=== PATIENT | female | born 1945 ===

== ENCOUNTER → 2019-04-28 | Emergency (ER) | payer OTHER ==
[~2019-04-28] VITALS: Ht 154.9 cm; Wt 93.9 kg
[~2019-04-28] MED LIST: IBUPROFEN800 MG PO; LAMICTAL100 MG; ORPH100T PO; SEPTRA DS TABLE1 TAB PO
== END | disposition home or self-care (01) ==
LOC: ER 19:02
DX: S01.111A Laceration without foreign body of right eyelid and periocular area, initial encounter (principal); S50.01XA Contusion of right elbow, initial encounter; W18.09XA Striking against other object with subsequent fall, initial encounter; Y93.89 Activity, other specified; Y92.488 Other paved roadways as the place of occurrence of the external cause; Y99.8 Other external cause status

== ENCOUNTER 2019-05-08 12:37 | Emergency (ER) | payer OTHER ==
[~2019-05-08] VITALS: Ht 154.9 cm; Wt 93.9 kg
== END 2019-05-08 17:27 | disposition home or self-care (01) ==
LOC: ER 12:37
DX: J06.9 Acute upper respiratory infection, unspecified (principal); Z48.02 Encounter for removal of sutures

== ENCOUNTER → 2019-05-12 10:28 | Outpatient (CLI) | payer OTHER | END | disposition home or self-care (01) | LOC: LAB 10:28 | DX: J11.1 Influenza due to unidentified influenza virus with other respiratory manifestations (principal); E78.49 Other hyperlipidemia; D64.89 Other specified anemias; N39.0 Urinary tract infection, site not specified; Z12.11 Encounter for screening for malignant neoplasm of colon; I10 Essential (primary) hypertension; E55.9 Vitamin D deficiency, unspecified ==

== ENCOUNTER 2021-06-04 12:44 | Emergency (ER) | payer OTHER ==
[~2021-06-04] VITALS: Ht 154.9 cm; Wt 77.1 kg
[2021-06-04] MEDS ORDERED: SIMVASTATIN20 MG PO (13:28)
[2021-06-04] MEDS ORDERED: METAXALONE800 MG PO (13:29)
[2021-06-04] MEDS ORDERED: TRINTELLIX10 MG (13:31)
[2021-06-04] MEDS ORDERED: RELAFEN DS1000 MG PO (13:32)
[2021-06-04] MEDS ORDERED: MUPIROCIN1 G1 TOP (14:40)
[2021-06-04] MEDS ORDERED: AMOX-CLAV 875-1 EACH PO (14:40)
== END 2021-06-04 14:57 | disposition home or self-care (01) ==
LOC: ER 12:44
DX: S61.452A Open bite of left hand, initial encounter (principal); W54.0XXA Bitten by dog, initial encounter; Y93.9 Activity, unspecified; Y92.9 Unspecified place or not applicable; Y99.9 Unspecified external cause status